=== PATIENT | male | born 1995 | race Caucasian/White ===

== ENCOUNTER 2017-01-26 21:41 | Emergency (ER) | payer OTHER ==
[~2017-01-26] VITALS: Ht 180.3 cm; Wt 102.1 kg
[~2017-01-26 21:41] MED LIST: BENADRYL ALLERG25 M2 PO; EPIPEN 2-P0.3 MG/0.3 IM; PREDNISONE20 M1 PO
[2017-01-26 22:20] LABS: ABSOLUTE BASOPHIL COUNT 0.1 /CUMM (0.0-0.2); ABSOLUTE EOSINOPHIL COUNT 0.3 /CUMM (0.0-0.7); ABSOLUTE GRANULOCYTE CT 6.5 /CUMM (1.4-6.5); ABSOLUTE LYMPH COUNT 3.4 /CUMM (1.2-3.4); BASOPHIL % 0.5 % (0.0-2.0); EOSINOPHIL % 2.6 % (0-5); GRANULOCYTE % 57.6 % (42.2-75.2); HEMATOCRIT 47.5 % (42-52); MEAN CORPUSCULAR HGB 29.1 PG (27.0-31.0); MEAN CORPUSCULAR HGB CONC 33.6 G/DL (33.0-37.0); MEAN CORPUSCULAR VOLUME 86.6 FL (80.0-94.0); MEAN PLATELET VOLUME 8.8 FL (7.4-10.4); PLATELET COUNT 295 /CUMM (130-400); RBC DISTRIBUTION WIDTH 14.4 % (11.5-14.5); RED BLOOD CELL CT 5.48 /CUMM (4.70-6.10); WHITE BLOOD CELL COUNT 11.3 /CUMM (4.8-10.8)
--- NOTE | 2017-01-26 23:58 | ED CARDIAC/CP/PALPITATIONS ---
History of Present Illness General Chief Complaint: Chest Pain Stated Complaint: SOB, CHEST PAIN X ONE HOUR PER PT Source: patient Exam Limitations: no limitations Vital Signs & Intake/Output Vital Signs & Intake/Output Vital Signs Date Time Temp Pulse Resp B/P Pulse O2 O2 Flow FiO2 Ox Delivery Rate 01/27 0113 98.6 77 18 125/82 99 Room Air 01/27 0010 Room Air 01/26 2156 98.9 83 18 134/89 98 Room Air ED Intake and Output 01/27 0000 01/26 1200 Intake Total Output Total Balance Patient 225 lb Weight Allergies Coded Allergies: No Known Allergies (06/05/16) Reconcile Medications Diphenhydramine HCl (Benadryl Allergy) 25 MG TABLET 1-2 TAB PO Q6P PRN itchy rash Epinephrine (Epipen 2-Chris) 0.3 MG/0.3 ML AUTO.INJCT 1 INJ IM ONCE PRN anaphylaxis Lorazepam (Ativan) 1 MG TABLET 1 TAB PO BID anxiety Prednisone 20 MG TABLET 1 TAB PO BID allergic rx Triage Note: PT TO ED C/O EPIGASTRIC PAIN THAT SHOOTS TO HIS BACK FOR 90 MINS. "IT TAKES MY BREATH AWAY" BP EQUAL KAHLIL ARMS. PAIN WORSE IN BACK WITH MOVEMENT. PAIN A LITTLE WORSE WITH INSPIRATION. PT ANXIOUS IN TRIAGE Triage Nurses Notes Reviewed? yes Onset: Abrupt Duration: hour(s): (930 pm), constant, continues in ED Timing: recent history Radiation: no radiation HPI: 21-year-old male comes into emergency room with complaints of chest pain and shortness of breath that occurred tonight around 9:30 PM while he was bowling. He reports that the pain has been continuous. He denies any vomiting. Nothing seems to make the symptoms better or worse. Denies any abdominal pain. Denies any prior history of this. He reports that he felt like he got extremely anxious after it occurred. (PATRICK JOHNSON) Past History Travel History Traveled to [place] past 21 day No Medical History Any Pertinent Medical History? 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 No (PATRICK JOHNSON) Review of Systems Review of Systems Constitutional: Reports: no symptoms. EENTM: Reports: no symptoms. Respiratory: Reports: see HPI. Cardiovascular: Reports: see HPI. GI: Reports: no symptoms. Genitourinary: Reports: no symptoms. Musculoskeletal: Reports: no symptoms. Skin: Reports: no symptoms. Neurological/Psychological: Reports: no symptoms. Hematologic/Endocrine: Reports: no symptoms. Immunologic/Allergic: Reports: no symptoms. All Other Systems: Reviewed and Negative (PATRICK JOHNSON) Physical Exam Physical Exam General Appearance: well developed/nourished, no apparent distress, alert Head: atraumatic, normal appearance Eyes: Bilateral: normal appearance. Ears, Nose, Throat: normal ENT inspection, hearing grossly normal Neck: normal inspection Respiratory: normal breath sounds, no respiratory distress Cardiovascular: regular rate/rhythm Gastrointestinal: normal bowel sounds, soft, non-tender Back: normal inspection Extremities: normal inspection, normal range of motion Neurologic/Psych: awake, alert, oriented x 3, normal gait, normal mood/affect Skin: intact, normal color Core Measures ACS in differential dx? Yes Severe Sepsis Present: No Septic Shock Present: No (PATRICK JOHSNON) Progress Differential Diagnosis: AMI, aortic dissection, cholecystitis, CHF/pulm edema, costochondritis, myocarditis, pancreatitis, pericarditis, pneumonia, pneumothorax, pulmonary embolism, PUD/GERD, PVCs/PACs, respiratory failure, rib fracture, unstable angina, V-fib/V-Tach Plan of Care: Orders Procedure Date/time Status TROPONIN LEVEL 01/26 2200 Complete LIPASE 01/26 2200 Complete COMPREHENSIVE METABOLIC PANEL 01/26 2200 Complete CBC WITHOUT DIFFERENTIAL 01/26 2200 Complete AMYLASE 01/26 2200 Complete EKG 01/26 2143 Active Laboratory Tests 01/26/172207: Anion Gap 16, Estimated GFR > 60, BUN/Creatinine Ratio 16.0, Glucose 97, Calcium 10.1, Total Bilirubin 0.8, AST 33, ALT 55, Alkaline Phosphatase 93, Troponin I < 0.01, Total Protein 8.4 H, Albumin 4.9, Globulin 3.5, Albumin/Globulin Ratio 1.4, Amylase 33, Lipase 86, CBC w Diff NO MAN DIFF REQ, RBC 5.48, MCV 86.6, MCH 29.1, RDW 14.4, MPV 8.8, Gran % 57.6, Lymphocytes % 30.4, Monocytes % 8.9, Eosinophils % 2.6, Basophils % 0.5, Absolute Granulocytes 6.5, Absolute Lymphocytes 3.4, Absolute Monocytes 1.0 H, Absolute Eosinophils 0.3, Absolute Basophils 0.1, PUBS MCHC 33.6 Diagnostic Imaging: Viewed by Me: Radiology Read. Discussed w/RAD: Radiology Read. Radiology Impression: SERVICE DATE: 01/27/17 EXAM TYPE: RAD - XRY-CHEST XRAY, PA AND LATERAL EXAMINATION: XR CHEST CLINICAL INFORMATION: Chest pain. COMPARISON: No relevant prior imaging is available. TECHNIQUE: 2 views of the chest were obtained. FINDINGS: Lungs are well-expanded. There is no focal consolidative disease, pleural effusion, or pneumothorax. The cardiac silhouette and upper mediastinal contours are normal. No acute osseous finding. IMPRESSION: Normal chest radiograph. No consolidative disease or effusion. DICTATED BY: ASHLEE VIERA,JUAN Galvez DATE/TIME DICTATED:01/27/17 0104 Initial ED EKG: normal intervals, normal p-waves, normal QRS complex, normal sinus rhythm, rate (77) Comments: 01/27/2017 1:10:22 AM Symptoms feel better after the medication here. Symptoms are resolving. Patient clinically looks well. He is nontoxic-appearing. No cardiac risk factors. No suspicion for pulmonary embolism. I Cleese stress related but patient was recommended to follow up with rail grinder. Case discussed with Dr. zamorano. He agrees with no second EKG and troponin at this time. (INDIA GEIGER,PATRICK) Departure Departure Disposition: HOME OR SELF CARE Condition: Stable Clinical Impression Primary Impression: Atypical chest pain Referrals: THUY VIERA,MARLA Torres PATIENT HAS NO PRIMARY CARE DR (PCP/Family) Additional Instructions: Take Ativan as needed for stress. Follow-up with rail grinder is symptoms persist. Return if any other concerns worsening symptoms. Please go over all results of today's visit with your primary care doctor. Contact your primary care doctor to let them know you were here in the emergency room. There may be nonspecific findings which may not be related to your visit today here in the emergency room but may require further evaluation and chronic monitoring by your primary care doctor. If you had a laceration today the chance of foreign body always remains. You should follow-up with your primary care doctor for recheck in 3-5 days for a wound check. If you had an x-ray done there is a chance that a fracture could have been missed on initial read and you should follow-up with your primary care doctor for repeat x-rays if symptoms persist. If your blood pressure was elevated here in the emergency room please have rechecked by her primary care doctor within the next 48 hours by your primary care doctor. If you were prescribed a narcotic here in the emergency room or any type of controlled substances you're not allowed to drive while taking this medication or operate any type of heavy machinery. Narcotics can make you feel lightheaded dizziness nausea and can cause constipation. You may need to flower picker a stool softener. Thank you for choosing [facility] emergency room. Please return to the emergency room immediately if you have any other concerns worsening of symptoms. Departure Forms: Customer Survey General Discharge Information Prescriptions: Current Visit Scripts Lorazepam (Ativan) 1 TAB PO BID #15 TAB (PATRICK JOHNSON) PA/FABRIC FINISHER Co-Sign Statement Statement: ED Attending supervision documentation- [] I saw and evaluated the patient. I have also reviewed all the pertinent lab results and diagnostic results. I agree with the findings and the plan of care as documented in the PA's/FABRIC FINISHER's documentation. x I have reviewed the ED Record and agree with the PA's/FABRIC FINISHER's documentation. [] Additions or exceptions (if any) to the PAs/FABRIC FINISHER's note and plan are summarized below: [] (SPARKLE VIERA,JANAK) Critical Care Note Critical Care Note Critical Care Time: non-applicable (PATRICK JOHNSON)
--- NOTE | 2017-01-27 01:08 | RADIOLOGY REPORT ---
EXAMINATION: XR CHEST CLINICAL INFORMATION: Chest pain. COMPARISON: No relevant prior imaging is available. TECHNIQUE: 2 views of the chest were obtained. FINDINGS: Lungs are well-expanded. There is no focal consolidative disease, pleural effusion, or pneumothorax. The cardiac silhouette and upper mediastinal contours are normal. No acute osseous finding. IMPRESSION: Normal chest radiograph. No consolidative disease or effusion.
[2017-01-27] MEDS ORDERED: ATIVAN1 M1 PO (01:09)
[2017-01-27 01:13] VITALS: BP 125/82
== END 2017-01-27 01:14 ==
LOC: ERH 21:41
PROVIDERS: Emergency Medicine
DX: R07.89 Other chest pain (principal)
CPT/HCPCS: 93005; 93010; 96372; J1885